=== PATIENT | female | born 1995 | race Two or more races ===

== ENCOUNTER 2016-09-02 11:50 | Observation (INO) | payer MEDICAID ==
[2016-09-02 13:03] LABS: Urine Bilirubin Negative (Negative); Urine Blood Negative /uL (Negative); Urine Color Yellow (Yellow); Urine Glucose Normal (Normal); Urine Ketone Negative (Negative); Urine Mucus FEW (None Seen); Urine Nitrite Negative (Negative); Urine RBC 9 /hpf (0 - 4); Urine Squamous Epithelial Cell FEW /hpf (<5); Urine Urobilinogen Normal (Negative); Urine pH 7.5 (5.0-8.0)
== END 2016-09-02 15:05 | disposition home or self-care (01) | DRG 566 ==
LOC: LDRP 11:50
PROVIDERS: ADMIT Specialist; ATTEND Specialist
DX: O26.852 Spotting complicating pregnancy, second trimester (principal); O26.892 Other specified pregnancy related conditions, second trimester; R10.2 Pelvic and perineal pain; Z3A.24 24 weeks gestation of pregnancy
CPT/HCPCS: 59025; 76815; 81001; 81002; 87070; G0378; G0434

== ENCOUNTER 2016-12-16 05:25 | Inpatient (IN) | payer MEDICAID ==
[~2016-12-16] VITALS: Ht 152.4 cm; Wt 68.0 kg
[2016-12-16 06:26] LABS: Urine Bilirubin Negative (Negative); Urine Color Yellow (Yellow); Urine Glucose Normal (Normal); Urine Ketone Negative (Negative); Urine Mucus FEW (None Seen); Urine Nitrite Negative (Negative); Urine RBC 142 /hpf (0 - 4); Urine Squamous Epithelial Cell MANY /hpf (<5); Urine Urobilinogen Normal (Negative); Urine WBC Clumps PRESENT /hpf (None Seen)
[2016-12-16 06:28] LABS: Urine Blood 2+ /uL (Negative)
[2016-12-16] MEDS ORDERED: LACTATED RINGER'S 1,000 ML IV SCH (06:35)
[2016-12-16] MEDS ORDERED: LACT. RINGERS/OXYTOCIN 20UNITS 1,000 ML IV SCH ×2 (06:35→14:30)
[2016-12-16] MEDS ORDERED: PHISODERM TOP SOLN 240ML BTL TOP PRN (06:45)
[2016-12-16] MEDS ORDERED: DERMOPLAST 60ML BOTTLE TOP PRN (06:45)
[2016-12-16] MEDS ORDERED: METHYLERGONOVINE MALEATE 0.2 MG/ML AMP IM PRN (06:45)
[2016-12-16] MEDS ORDERED: LIDOCAINE 2%HCL (LOCAL ANESTH.) INJ 20ML MDV IJ ONE (06:45)
[2016-12-16] MEDS ORDERED: WITCH HAZEL-GLYCERIN PAD TOP PRN (06:45)
[2016-12-16] MEDS ORDERED: NALBUPHINE HCL 10 MG/1ml INJECTION IV PRN (06:45)
[2016-12-16] MEDS ORDERED: PENICILLIN G POT 5MIL/D5 50ML 50 ML IV ONE (06:45)
[2016-12-16 07:16] LABS: Basophils # (auto) 0 uL; Basophils % (auto) 0.3 % (0.0-2.0); Eosinophils # (auto) 0.1 uL; Eosinophils % (auto) 0.6 % (0.0-7.0); Hematocrit 40.5 % (36.0-46.0); Hemoglobin 14.1 g/dL (12.2-16.2); Lymphocytes # (auto) 1.4 uL; Lymphocytes % (auto) 10.7 % (10.0-50.0); Mean Corpuscular Hemoglobin 33.3 pg (28.0-32.0); Mean Corpuscular Hgb Conc. 34.8 g/dL (32.0-36.0); Mean Corpuscular Volume 95.8 fL (80.0-100.0); Mean Platelet Volume 8.5 fL (7.4-10.4); Monocytes # (auto) 0.8 uL; Monocytes % (auto) 5.8 % (0.0-12.0); Neutrophils # (auto) 10.9 uL; Neutrophils % (auto) 82.6 % (37.0-80.0); Platelet Count (auto) 320 10^3/uL (140-450); White Blood Cell 13.2 10^3/uL (4.4-10.8)
[2016-12-16 07:33] LABS: Albumin 2.4 g/dL (3.4-5.0); BUN/Creatinine Ratio 9.3; Calcium 8.8 mg/dL (8.5-10.1); Potassium 3.6 mmol/L (3.5-5.1)
[2016-12-16 07:35] LABS: Bilirubin, Total 0.3 mg/dL (0.2-1.0); Total Protein 7.3 g/dL (6.4-8.2)
[2016-12-16 07:39] LABS: Partial Thromboplastin Time 27.6 sec (22.64-33.71); Prothrombin Time 9.6 sec (9.37-12.3)
[2016-12-16 07:48] LABS: INR 0.88 (0.9-1.15)
[2016-12-16] MEDS ORDERED: fentaNYL W ROPIVACAINE 150 ML EPI SCH ×2 (08:15→09:15)
[2016-12-16] MEDS ORDERED: ePHEDrine SULFATE 50 MG/ML AMP IV ONE ×2 (08:15→09:15)
[2016-12-16] MEDS ORDERED: NALOXONE HCL 0.4 MG/ML VIAL IV ONE ×2 (08:15→09:15)
[2016-12-16] MEDS ORDERED: fentaNYL CITRATE 100 MCG/2 ML VL IV ONE (08:15)
[2016-12-16] MEDS ORDERED: LIDOCAINE HCL 2 %PF INJ 10ML AMP IJ ONE (08:15)
[2016-12-16] MEDS: PENICILLIN G POTASSIUM 2,500,000 UNITS in D5W 5% 50 ML IV SCH ×2 (11:26→15:30)
[2016-12-16] MEDS ORDERED: TERBUTALINE SULFATE 1 MG/ML 1ML VIAL SC ONE (14:30)
[2016-12-16] MEDS ORDERED: ACETAMINOPHEN 325 MG TAB PO PRN (18:00)
[2016-12-16 21:43] VITALS: BP 95/57
[2016-12-16 23:30] VITALS: BP 103/49
[2016-12-16] MEDS: IBUPROFEN 600 MG TAB PO PRN (23:47)
[2016-12-17 03:34] VITALS: BP 97/56
[2016-12-17 08:00] VITALS: BP 102/62
[2016-12-17] MEDS ORDERED: DOCUSATE CALCIUM 240 MG CAP PO SCH (10:00)
[2016-12-17 12:06] VITALS: BP 94/55
[2016-12-17 15:52] VITALS: BP 112/76
[2016-12-17 18:30] VITALS: BP 124/84
[2016-12-17] MEDS: IBUPROFEN 600 MG TAB PO PRN (19:28)
[2016-12-17 22:30] VITALS: BP 114/73
[2016-12-18 03:00] VITALS: BP 106/71
[2016-12-18] MEDS: IBUPROFEN 600 MG TAB PO PRN (03:14)
[2016-12-18 08:00] VITALS: BP 112/67
[2016-12-18 12:00] VITALS: BP 118/52
== END 2016-12-18 11:50 | disposition home or self-care (01) | DRG 560 ==
LOC: OBSVTOIN 05:25 → LDRP 05:25
PROVIDERS: ADMIT Specialist; ATTEND Specialist
PROC: 10D07Z6 Extraction of Products of Conception, Vacuum, Via Natural or Artificial Opening (ICD-10-PCS; principal; 2016-12-16)
PROC: 0HQ9XZZ Repair Perineum Skin, External Approach (ICD-10-PCS; 2016-12-16)
PROC: 3E0S3CZ (ICD-10-PCS; 2016-12-16)
PROC: 00HU33Z Insertion of Infusion Device into Spinal Canal, Percutaneous Approach (ICD-10-PCS; 2016-12-16)
PROC: 10907ZC Drainage of Amniotic Fluid, Therapeutic from Products of Conception, Via Natural or Artificial Opening (ICD-10-PCS; 2016-12-16)
DX: O99.824 Streptococcus B carrier state complicating childbirth (principal); O76 Abnormality in fetal heart rate and rhythm complicating labor and delivery; O70.0 First degree perineal laceration during delivery; Z37.0 Single live birth; Z3A.39 39 weeks gestation of pregnancy
CPT/HCPCS: 36415; 59025; 59612; 62282; 80053; 80307; 81001; 81002; 85025; 85610; 85730; 86850; 86900; 86901; 94762; 96361; 96366; 96374; G0378; J2540; J2590; J3010; J7060

== ENCOUNTER 2017-11-10 10:42 | Emergency (ER) | payer MEDICAID ==
[~2017-11-10] VITALS: Ht 152.4 cm; Wt 54.4 kg
[2017-11-10 11:29] LABS: Basophils # (auto) 0.1 uL; Basophils % (auto) 0.5 % (0.0-2.0); Eosinophils # (auto) 0.1 uL; Eosinophils % (auto) 0.5 % (0.0-7.0); Hematocrit 40.5 % (36.0-46.0); Hemoglobin 13.6 g/dL (12.2-16.2); Lymphocytes # (auto) 1.7 uL; Lymphocytes % (auto) 8.5 % (10.0-50.0); Mean Corpuscular Hgb Conc. 33.6 g/dL (32.0-36.0); Mean Corpuscular Volume 92.2 fL (80.0-100.0); Monocytes # (auto) 0.9 uL; Monocytes % (auto) 4.7 % (0.0-12.0); Neutrophils % (auto) 85.8 % (37.0-80.0); Platelet Count (auto) 367 10^3/uL (140-450); Red Blood Cells 4.39 10^6/uL (4.0-5.20); Red Cell Distribution Width 13.5 % (11.8-14.3); White Blood Cell 19.8 10^3/uL (4.4-10.8)
[2017-11-10 11:51] LABS: Albumin 3.5 g/dL (3.4-5.0); BUN/Creatinine Ratio 12.1; Bilirubin, Total 0.7 mg/dL (0.2-1.0); Calcium 8.9 mg/dL (8.5-10.1); Potassium 3.6 mmol/L (3.5-5.1)
[2017-11-10 11:52] LABS: Urine Bacteria MOD /hpf (None Seen); Urine Blood Negative /uL (Negative); Urine Mucus FEW (None Seen); Urine Specific Gravity 1.023 (1.001-1.035); Urine WBC 100 /hpf (0 - 5)
[2017-11-10] MEDS ORDERED: SODIUM CHLORIDE 0.9% 500 ML IV ONE (12:38)
[2017-11-10] MEDS ORDERED: cefTRIAXone 1GM/10ml IVPUSH 10 ML IV ONE (12:45)
[2017-11-10] MEDS ORDERED: NALBUPHINE HCL 10 MG/1ml INJECTION IV ONE (14:15)
[2017-11-10] MEDS ORDERED: PROMETHAZINE HCL 25 MG/ML 1ML IV ONE (14:15)
[2017-11-10 15:30] VITALS: BP 105/68
== END 2017-11-10 17:58 | disposition home or self-care (01) ==
LOC: ER 10:42
DX: N39.0 Urinary tract infection, site not specified (principal); K59.00 Constipation, unspecified; F17.210 Nicotine dependence, cigarettes, uncomplicated
CPT/HCPCS: 36415; 74176; 80053; 81001; 84702; 85025; 96361; 96374; 96375; 99285; J2300; J2550; J7030

== ENCOUNTER 2020-02-01 03:44 | Emergency (ER) | payer MEDICAID | END 2020-02-01 03:50 | disposition left against medical advice (07) | LOC: ER 03:45 | DX: G43.909 Migraine, unspecified, not intractable, without status migrainosus (principal); R50.9 Fever, unspecified; Z53.21 Procedure and treatment not carried out due to patient leaving prior to being seen by health care provider ==

== ENCOUNTER 2020-06-02 04:04 | Emergency (ER) | payer MEDICAID ==
[~2020-06-02] VITALS: Ht 152.4 cm; Wt 63.5 kg
[2020-06-02] MEDS ORDERED: SODIUM CHLORIDE 0.9% 1,000 ML IV ONE (07:00)
[2020-06-02] MEDS ORDERED: KETOROLAC TROMETH 30 MG/ML 1ML VIAL IV ONE (07:15)
[2020-06-02 07:37] LABS: Urine Blood Negative /uL (Negative); Urine Specific Gravity 1.005 (1.001-1.035); Urine WBC 8 /hpf (0 - 5)
[2020-06-02 07:38] LABS: Urine Amorphous Crystal FEW /hpf (None Seen); Urine Bacteria MOD /hpf (None Seen)
[2020-06-02 08:27] VITALS: BP 108/68
== END 2020-06-02 09:49 | disposition home or self-care (01) ==
LOC: ER 04:04
DX: R51.9 Headache, unspecified (principal); E86.0 Dehydration; N39.0 Urinary tract infection, site not specified; F17.210 Nicotine dependence, cigarettes, uncomplicated; Z32.02 Encounter for pregnancy test, result negative
CPT/HCPCS: 70450; 81001; 81025

== ENCOUNTER 2020-08-17 17:58 | Emergency (ER) | payer MEDICAID ==
[~2020-08-17] VITALS: Ht 152.4 cm; Wt 70.3 kg
[2020-08-17 18:43] LABS: Basophils # (auto) 0.1 10 ^3/uL (0-0.2); Basophils % (auto) 0.5 % (0.0-2.0); Eosinophils # (auto) 0.1 10 ^3/uL (0-0.8); Eosinophils % (auto) 0.7 % (0.0-7.0); Hematocrit 40.1 % (36.0-46.0); Hemoglobin 13.8 g/dL (12.2-16.2); Lymphocytes # (auto) 0.6 10 ^3/uL (0.4-5.4); Lymphocytes % (auto) 4.5 % (10.0-50.0); Mean Corpuscular Hemoglobin 30.2 pg (28.0-32.0); Mean Corpuscular Hgb Conc. 34.4 g/dL (32.0-36.0); Mean Corpuscular Volume 87.9 fL (80.0-100.0); Monocytes # (auto) 0.8 10 ^3/uL (0-1.3); Monocytes % (auto) 6.6 % (0.0-12.0); Neutrophils # (auto) 10.9 10 ^3/uL (1.6-8.6); Neutrophils % (auto) 87.7 % (37.0-80.0); Platelet Count (auto) 310 10^3/uL (140-450); Red Blood Cells 4.56 10^6/uL (4.0-5.20); Red Cell Distribution Width 14.7 % (11.8-14.3); White Blood Cell 12.5 10^3/uL (4.4-10.8)
[2020-08-17 18:50] LABS: Albumin 3.5 g/dL (3.4-5.0); Calcium 8.7 mg/dL (8.5-10.1); Potassium 3.8 mmol/L (3.5-5.1)
[2020-08-17 18:52] LABS: BUN/Creatinine Ratio 21.3; Bilirubin, Total 0.6 mg/dL (0.2-1.0); Total Protein 8.1 g/dL (6.4-8.2)
[2020-08-17] MEDS ORDERED: SODIUM CHLORIDE 0.9% 1,000 ML IVB ONE (19:15)
[2020-08-17] MEDS ORDERED: PROMETHAZINE HCL 25 MG/ML 1ML IV ONE (19:15)
[2020-08-17 20:11] VITALS: BP 136/88
[2020-08-17 22:19] LABS: Urine Bacteria NONE SEEN /hpf (None Seen); Urine Blood Negative /uL (Negative); Urine Mucus FEW (None Seen); Urine Specific Gravity 1.037 (1.001-1.035); Urine WBC 3 /hpf (0 - 5)
== END 2020-08-17 23:07 | disposition home or self-care (01) ==
LOC: ER 17:58
DX: O21.9 Vomiting of pregnancy, unspecified (principal); O26.891 Other specified pregnancy related conditions, first trimester; O99.331 Smoking (tobacco) complicating pregnancy, first trimester; R94.5 Abnormal results of liver function studies; Z3A.01 Less than 8 weeks gestation of pregnancy
CPT/HCPCS: 36415; 76801; 80053; 81001; 84702; 85025; 96361; 96374; 99284; J2550

== ENCOUNTER 2021-04-09 08:53 | Inpatient (IN) | payer MEDICAID ==
[~2021-04-09] VITALS: Ht 152.4 cm; Wt 77.1 kg
[2021-04-09] MEDS ORDERED: PREN-96 PO (10:02)
[2021-04-09] MEDS ORDERED: DERMOPLAST 60ML BOTTLE TOP PRN (11:15)
[2021-04-09] MEDS ORDERED: PHISODERM TOP SOLN 240ML BTL TOP PRN (11:15)
[2021-04-09] MEDS ORDERED: WITCH HAZEL-GLYCERIN PAD TOP PRN (11:15)
[2021-04-09] MEDS ORDERED: LACT. RINGERS/OXYTOCIN 20UNITS 500 ML IV PRN (11:15)
[2021-04-09] MEDS ORDERED: PROMETHAZINE HCL 25 MG/ML 1ML IV PRN (11:15)
[2021-04-09] MEDS ORDERED: LIDOCAINE 2%HCL (LOCAL ANESTH.) INJ 20ML MDV IJ PRN (11:15)
[2021-04-09] MEDS ORDERED: LACT. RINGERS/OXYTOCIN 20UNITS 500 ML IV ONE (11:15)
[2021-04-09] MEDS ORDERED: BUTORPHANOL TARTRATE 2 MG/1 ML VIAL IV PRN ×2 (11:15)
[2021-04-09 11:50] LABS: Basophils # (auto) 0 10 ^3/uL (0-0.2); Basophils % (auto) 0.6 % (0.0-2.0); Eosinophils # (auto) 0.1 10 ^3/uL (0-0.8); Eosinophils % (auto) 1.3 % (0.0-7.0); Hematocrit 36.4 % (36.0-46.0); Lymphocytes # (auto) 1.2 10 ^3/uL (0.4-5.4); Mean Corpuscular Hemoglobin 27.5 pg (28.0-32.0); Mean Corpuscular Hgb Conc. 32.9 g/dL (32.0-36.0); Mean Corpuscular Volume 83.7 fL (80.0-100.0); Monocytes # (auto) 0.6 10 ^3/uL (0-1.3); Monocytes % (auto) 7.2 % (0.0-12.0); Neutrophils # (auto) 5.8 10 ^3/uL (1.6-8.6); Neutrophils % (auto) 74.9 % (37.0-80.0); Nucleated Red Blood Cells % 0.1 %; Red Blood Cells 4.35 10^6/uL (4.0-5.20); Red Cell Distribution Width 15.6 % (11.8-14.3); White Blood Cell 7.8 10^3/uL (4.4-10.8)
[2021-04-09 11:54] LABS: Urine Bacteria FEW /hpf (None Seen); Urine Blood Negative /uL (Negative); Urine Specific Gravity 1.024 (1.001-1.035); Urine WBC 5 /hpf (0 - 5)
[2021-04-09] MEDS: LACTATED RINGER'S 1,000 ML IV SCH ×2 (11:54→19:04)
[2021-04-09 12:03] LABS: INR 0.94 (0.9-1.15); Partial Thromboplastin Time 27.8 sec (23.6-33.0)
[2021-04-09 12:05] LABS: Alcohol, Urine < 3.0 mg/dL (0-10); Amphetamine Screen, Urine NEGATIVE (NEGATIVE); Barbiturate Scree,Urine NEGATIVE (NEGATIVE); Benzodiazephine Screen, Urine NEGATIVE (NEGATIVE); Cannabinoid Screen, Urine NEGATIVE (NEGATIVE); Cocaine Screen, Urine NEGATIVE (NEGATIVE); Opiate Scree,Urine NEGATIVE (NEGATIVE); Phencyclidine Screen, Urine NEGATIVE (NEGATIVE)
[2021-04-09 12:05] LABS: Albumin 2.2 g/dL (3.4-5.0); Calcium 9.1 mg/dL (8.5-10.1); Potassium 4.6 mmol/L (3.5-5.1)
[2021-04-09 12:09] LABS: BUN/Creatinine Ratio 15.3; Bilirubin, Total 0.3 mg/dL (0.2-1.0); Total Protein 6.9 g/dL (6.4-8.2)
[2021-04-09] MEDS: miSOPROStol 50 MCG per PRE-CUT 1/2 TAB PO PRN ×2 (13:00→19:32)
[2021-04-09] MEDS ORDERED: NALOXONE HCL 0.4 MG/ML VIAL IV ONE (21:30)
[2021-04-09] MEDS ORDERED: fentaNYL CITRATE 100 MCG/2 ML VL IV ONE (21:30)
[2021-04-09] MEDS ORDERED: LIDOCAINE HCL 2 %PF INJ 10ML AMP IJ ONE (21:30)
[2021-04-09] MEDS ORDERED: ePHEDrine SULFATE 50 MG/ML AMP IV ONE (21:30)
[2021-04-09] MEDS ORDERED: LACTATED RINGER'S 500 ML IV ONE (21:30)
[2021-04-09] MEDS: ROPIVACAINE HCL 200 ML EPI SCH (22:06)
[2021-04-10] MEDS ORDERED: LACT. RINGERS/OXYTOCIN 20UNITS 1,000 ML IV SCH (02:15)
[2021-04-10] MEDS ORDERED: METHYLERGONOVINE MALEATE 0.2 MG/ML AMP IM PRN (06:30)
[2021-04-10] MEDS ORDERED: TERBUTALINE SULFATE 1 MG/ML 1ML VIAL SC ONE (07:02)
[2021-04-10] MEDS: LACTATED RINGER'S 1,000 ML IV SCH ×3 (07:49→16:28)
[2021-04-10] MEDS: ROPIVACAINE HCL 200 ML EPI SCH (08:02)
[2021-04-10] MEDS ORDERED: fentaNYL CITRATE 100 MCG/2 ML VL EPI ONE (08:15)
[2021-04-10] MEDS ORDERED: fentaNYL CITRATE 100 MCG/2 ML VL ONE ×3 (08:16→18:10)
[2021-04-10] MEDS: SODIUM CHLORIDE 0.9% 1,000 ML IUPC SCH ×2 (08:25→08:27)
[2021-04-10] MEDS ORDERED: SODIUM CHLORIDE 0.9% 300 ML IUPC ONE (08:30)
[2021-04-10] MEDS ORDERED: GENTAMICIN PER PHARMACY 0 ML IV SCH (14:30)
[2021-04-10] MEDS ORDERED: ACETAMINOPHEN 325 MG TAB PO ONE (15:00)
[2021-04-10] MEDS ORDERED: ceFAZolin 1GM/50ML 50 ML IV ONE (15:00)
[2021-04-10] MEDS ORDERED: AMPICILLIN SOD 2GM INJ 2 GM in SODIUM CHL 0.9% 100 ML IV ONE (15:00)
[2021-04-10] MEDS ORDERED: GENTAMICIN SULFATE 280 MG in D5W 5% 100 ML IV ONE (16:00)
[2021-04-10] MEDS ORDERED: AMPICILLIN SOD 2GM INJ 2 GM in SODIUM CHL 0.9% 100 ML IV SCH (18:00)
[2021-04-10] MEDS ORDERED: SODIUM CHLORIDE LOCK 10 ML ONE (18:10)
[2021-04-10] MEDS ORDERED: ONDANSETRON HCL 4 MG/2 ML VIAL ONE (18:10)
[2021-04-10] MEDS ORDERED: MIDAZOLAM HCL 2MG/2ML 2ml VIAL (1mg/ml) ONE (18:10)
[2021-04-10] MEDS ORDERED: LIDOCAINE 2% (LOCAL ANESTH.) PF 5ml SDV ONE (18:10)
[2021-04-10] MEDS ORDERED: SUCCINYLCHOLINE CHLORIDE 20 MG/ML 10ML VIAL IV ONE (18:12)
[2021-04-10] MEDS ORDERED: AZITHROMYCIN 500MG/ 250ML 250 ML IV ONE (19:45)
[2021-04-10] MEDS ORDERED: ONDANSETRON HCL 4 MG/2 ML VIAL IV PRN (19:45)
[2021-04-10] MEDS ORDERED: GUM (CHEWING) 1 GUM CHEW CHEW ONE (19:45)
[2021-04-10] MEDS ORDERED: ePHEDrine SULFATE 50 MG/ML AMP IV PRN (19:45)
[2021-04-10] MEDS ORDERED: ceFAZolin 2 GM in D5W 5% 100 ML IV ONE (19:45)
[2021-04-10 20:40] VITALS: BP 134/81
[2021-04-10 21:00] VITALS: BP 131/79
[2021-04-10] MEDS ORDERED: AMPICILLIN INJ 1 GM in SODIUM CHL 0.9% 50 ML IV SCH (21:00)
[2021-04-10 22:00] VITALS: BP 120/81
[2021-04-10] MEDS: ACETAMINOPHEN IV 1000 MG/100ML (10MG/ML) IV PRN (22:28)
[2021-04-10 23:00] VITALS: BP 118/66
[2021-04-11] VITALS (11 sets, daily range): BP systolic 97–134; BP diastolic 50–79
[2021-04-11] MEDS: MORPHINE SULFATE 4 MG/ML SYR/VIAL IV PRN ×3 (01:03→09:59)
[2021-04-11 05:06] LABS: RPR Non Reactive (Non Reactive)
[2021-04-11 07:23] LABS: Basophils # (auto) 0 10 ^3/uL (0-0.2); Basophils % (auto) 0.1 % (0.0-2.0); Eosinophils # (auto) 0 10 ^3/uL (0-0.8); Eosinophils % (auto) 0.3 % (0.0-7.0); Hematocrit 28.5 % (36.0-46.0); Hemoglobin 9.6 g/dL (12.2-16.2); Lymphocytes # (auto) 1.1 10 ^3/uL (0.4-5.4); Lymphocytes % (auto) 7.7 % (10.0-50.0); Mean Corpuscular Hgb Conc. 33.7 g/dL (32.0-36.0); Monocytes # (auto) 0.9 10 ^3/uL (0-1.3); Neutrophils # (auto) 12.7 10 ^3/uL (1.6-8.6); Neutrophils % (auto) 85.9 % (37.0-80.0); Red Blood Cells 3.43 10^6/uL (4.0-5.20); Red Cell Distribution Width 15.3 % (11.8-14.3); White Blood Cell 14.8 10^3/uL (4.4-10.8)
[2021-04-11] MEDS ORDERED: ceFAZolin 1GM/50ML 50 ML IV SCH (08:15)
[2021-04-11] MEDS ORDERED: IBUPROFEN 800 MG TAB PO PRN (08:15)
[2021-04-11] MEDS: LACTATED RINGER'S 1,000 ML IV SCH ×2 (08:38→18:15)
[2021-04-11] MEDS: ceFAZolin 1GM/50ML 50 ML IV SCH ×2 (08:38→16:45)
[2021-04-11] MEDS: ACETAMINOPHEN IV 1000 MG/100ML (10MG/ML) IV PRN (08:39)
[2021-04-11] MEDS: DOCUSATE CALCIUM 240 MG CAP PO SCH (10:00)
[2021-04-11] MEDS: FERROUS SULFATE 325mg EC TAB PO SCH ×2 (10:00→22:05)
[2021-04-11] MEDS ORDERED: HYDROcodone-ACET 5/325MG TAB PO PRN (11:45)
[2021-04-11] MEDS: HYDROcodone-ACET 5/325MG TAB PO PRN ×2 (16:43→20:38)
[2021-04-12] MEDS: ceFAZolin 1GM/50ML 50 ML IV SCH (00:54)
[2021-04-12] MEDS: HYDROcodone-ACET 5/325MG TAB PO PRN ×3 (01:36→12:16)
[2021-04-12 02:50] VITALS: BP 105/36
[2021-04-12] MEDS: LACTATED RINGER'S 1,000 ML IV SCH (04:15)
[2021-04-12 07:15] VITALS: BP 119/69
[2021-04-12] MEDS ORDERED: BISACODYL 10 MG RECT SUPP PR PRN (10:00)
[2021-04-12] MEDS: DOCUSATE CALCIUM 240 MG CAP PO SCH (10:06)
[2021-04-12] MEDS: FERROUS SULFATE 325mg EC TAB PO SCH (10:06)
[2021-04-12 11:00] VITALS: BP 127/79
[2021-04-12] MEDS ORDERED: HYDR-4902 PO (15:19)
[2021-04-12] MEDS ORDERED: DOCU-94 PO (15:20)
[2021-04-12 15:29] VITALS: BP 120/72
== END 2021-04-12 15:51 | disposition home or self-care (01) | DRG 540 ==
LOC: LDRP 08:53 → OBSVTOIN 11:07 → LDRP 11:09
PROVIDERS: ADMIT Obstetrics & Gynecology; ATTEND Obstetrics & Gynecology
PROC: 10D00Z1 Extraction of Products of Conception, Low, Open Approach (ICD-10-PCS; principal; 2021-04-10 18:25)
DX: O48.0 Post-term pregnancy (principal); O41.03X0 Oligohydramnios, third trimester, not applicable or unspecified; O99.13 Other diseases of the blood and blood-forming organs and certain disorders involving the immune mechanism complicating the puerperium; Z20.822 Contact with and (suspected) exposure to COVID-19; Z3A.40 40 weeks gestation of pregnancy; O66.9 Obstructed labor, unspecified; O62.1 Secondary uterine inertia; O77.0 Labor and delivery complicated by meconium in amniotic fluid; Z37.0 Single live birth; R71.0 Precipitous drop in hematocrit
CPT/HCPCS: 36415; 59025; 62282; 76818; 80053; 80307; 81001; 81002; 84112; 85025; 85610; 85730; 86592; 86850; 86900; 86901; 87426; 94760; 96360; 96361; 96365; 96366; G0378; J0131; J0330; J0690; J2001; J2250; J2405; J2590; J7060

== ENCOUNTER 2023-01-26 22:21 | Emergency (ER) | payer MEDICAID ==
[~2023-01-26 22:21] MED LIST: DOCU-94 PO; HYDR-4902 PO; PREN-96 PO
== END 2023-01-26 22:42 | disposition left against medical advice (07) ==
LOC: ER 22:21
DX: M79.673 Pain in unspecified foot (principal); Z53.21 Procedure and treatment not carried out due to patient leaving prior to being seen by health care provider